=== PATIENT | female | born 1935 | race Caucasian/White ===

== ENCOUNTER 2022-09-13 09:39 | Inpatient (IN) | payer MEDICARE ==
[~2022-09-13] VITALS: Ht 147.3 cm; Wt 61.6 kg
[2022-09-13] MEDS ORDERED: CATAPRES-TTS 11 EAC1 (10:41)
[2022-09-13] MEDS ORDERED: CATAPRES0.1 MG (10:42)
[2022-09-13] MEDS ORDERED: EUTHYROX100 MC1 PO (10:42)
[2022-09-13] MEDS ORDERED: IRBESARTAN300 M3 PO (10:43)
[2022-09-13] MEDS ORDERED: AMLODIPINE BESY10 MG PO (10:43)
[2022-09-13 10:45] LABS: BASOPHILS ABSOLUTE AUTO 0.03 K/mm3 (0.00-0.23); BASOPHILS PERCENT AUTO 0 % (0-2); EOSINOPHILS ABSOLUTE AUTO 0.06 K/mm3 (0.00-0.68); EOSINOPHILS PERCENT AUTO 1 % (0-6); Hematocrit 41.8 % (33.0-51.0); Hemoglobin 14.5 g/dL (11.5-16.0); IMMATURE GRAN ABSOLUTE AUTO 0.03 K/mm3 (0.00-0.10); IMMATURE GRAN PERCENT AUTO 0 % (0-1); LYMPHOCYTES ABSOLUTE AUTO 0.72 K/mm3 (0.84-5.20); LYMPHOCYTES PERCENT AUTO 10 % (21-46); MONOCYTES ABSOLUTE AUTO 0.86 K/mm3 (0.16-1.47); MONOCYTES PERCENT AUTO 12 % (4-13); Mean Corpuscular HGB 32.2 pg (26.0-34.0); Mean Corpuscular HGB Conc 34.7 g/dL (31.5-36.5); Mean Corpuscular Volume 93 fL (80-100); Mean Platelet Volume 9.9 fL (9.1-12.4); NEUTROPHILS ABSOLUTE AUTO 5.49 K/mm3 (1.96-9.15); NEUTROPHILS PERCENT AUTO 76 % (41-73); Platelet Count 268 K/mm3 (150-400); RDW Coefficient Variation 11.6 % (11.7-14.2); RDW Standard Deviation 39.6 fL (35.1-46.3); Red Blood Cell Count 4.51 M/mm3 (3.80-5.20); White Blood Cell Count 7.19 K/mm3 (4.00-11.30)
[2022-09-13] MEDS ORDERED: SPIRONOLACTONE25 MG PO (10:45)
[2022-09-13] MEDS ORDERED: Lovastatin10 MG PO (10:45)
[2022-09-13] MEDS ORDERED: METO100ER PO (10:46)
[2022-09-13] MEDS ORDERED: METFORMIN HCL500 M3 PO (10:46)
[2022-09-13] MEDS ORDERED: PLAVIX75 MG PO (10:46)
[2022-09-13] MEDS ORDERED: PANT20 PO (10:47)
[2022-09-13 10:55] LABS: Albumin, Blood 3.6 g/dL (3.4-5.0); Bilirubin, Total 0.4 mg/dL (0.1-1.0); Calcium, Blood 8.9 mg/dL (8.5-10.1); Globulin, Blood 3.6 g/dL (2.2-4.0); Magnesium, Blood 1.9 mg/dL (1.6-2.4); Thyroid Stimulating Hormone 1.75 uIU/mL (0.360-4.800); Total Protein, Blood 7.2 g/dL (6.4-8.2)
[2022-09-13 10:58] LABS: International Normalized Ratio 1.01; Prothrombin Time Results 10.6 Sec (9.7-11.5)
[2022-09-13 11:11] LABS: Influenza A, PCR NEGATIVE (NEGATIVE); Influenza B, PCR NEGATIVE (NEGATIVE); Resp Syncytial Virus, PCR NEGATIVE (NEGATIVE); SARS-Cov-2 (COVID-19) PCR, MMC NEGATIVE (NEGATIVE)
[2022-09-13 11:44] LABS: Source, Urine Clean Catch
[2022-09-13 11:47] LABS: Appearance, Urine Clear (Clear); Bilirubin, Urine Neg (Neg); Blood, Urine Neg (Neg); Color, Urine Yellow (P-Yellow); Glucose Qualitative, Urine Neg (Neg); Ketones, Urine Neg (Neg); Leukocyte Esterase, Urine 1+ (Neg); Nitrite, Urine Neg (Neg); Protein, Urine 2+ (Neg); Specific Gravity, Urine 1.015 (1.003-1.022); Urobilinogen, Urine NORM (Normal); pH, Urine 6.5 (5.0-8.0)
[2022-09-13 12:05] LABS: Bacteria Not Seen /hpf; Red Blood Cells, Urine Not Seen /hpf (0-2); Squamous Epithelial Cells Rare /hpf (Few); White Blood Cells, Urine 0-2 /hpf (0-5)
[2022-09-13] MEDS ORDERED: Hair, Skin & N1 EACH PO (13:46)
[2022-09-13] MEDS ORDERED: CALCIUM PO (13:46)
[2022-09-13] MEDS ORDERED: TOCO1000 PO (13:47)
--- NOTE | 2022-09-13 15:59 | NUR ---
PATIENT ADMIT TO PCU AT 1330: UPON ADMIT PATIENT ALERT AND ORIENTED X4. ABLE TO STAND AND TRANSFER WITH SBA. ON ROOM AIR, LUNGS SONUDING CLEAR. TELE SHOWING AFIB WITH HR 80-110'S. ON CARDIZEM DRIP AT 10 MG/HR. TITRATED DOWN TO 5MG/HR. ELEVATED BP AND PATIENT FEELING TIGHT BAND AROUND STOMACH, STATES SHE FEELS LIKE SHE IS WEARING A BELT. DR. PERSON CALLED AND UPDATED. DR. FLORES TO BEDSIDE. ORDERS FOR THIS RN TO PLACE. METOPROLOL SUCCINATE 100 MG PO AT 1800 AND TO NOT GIVE 2100 DOSE. TO TURN CARDIZEM GTT OFF AROUND [id number]. HYDRALAZINE 10 MG IV Q4 PRN FOR SBP OVER 160. DC SALINE. CARDIAC DIET. RUQ ABDOMINAL ULTRASOUND TO CHECK GALLBLADDER. TROPONIN CHECK AT 1700, AND HEPARIN PHARMACY CONSULT. ORDERS IN PLACE. BP ELEVATED AND HYDRALAZINE GIVEN WITH GOOD RELIEF, SEE CHARTE VITALS. PATIENT STARTING TO FEEL NAUSEAOUS WITH LEFT SIDED TINGLE AND NOTED TO NOW HAVE SLIGHT LEFT SIDED FACIAL DROOP. DR. FLORES CALLED, ZOFRAN 4MG IV Q6 PRN ORDERED AND GIVEN STAT WELL STAT HEAD CT WITHOUT CONTRAST. ORDERS IN PLACE. CT ON WAY TO SPACE OPERATIONS OFFICER PATIENT. PATIENT AND GRANDSON UPDATED AT BEDSIDE. GRANDSON NOTED THAT PATIENT THIS MORNING HAD SLIGHT LEFT SIDED DROOP AFTER HER FALL WHEN HE WAS ASSESSING HER AND STATED THAT IS SEEMED TO RESOLVE ITSELF WITH TIME IN ED. PATIENT NOW PRESENTING WITH SAME LEFT SIDED DROOP NOTED MAINLY WITH MOUTH. SPEECH SEEMS TO BE MORE SLURRED. PERRLA. BILATERAL DIGITAL SOLUTION ARCHITECT STRENGTH AND EXTREMITY MOVEMENT. CARDIZEM CONTINUES TO INFUSE AT THIS TIME. PUBLIC HOUSING MANAGER UPDATED ON EVENTS. PLAN TO START HEPARIN, WAITING FOR LAB RESULTS.
--- NOTE | 2022-09-13 16:10 | NUR ---
PATIENT TO CT AT THIS TIME
--- NOTE | 2022-09-13 16:43 | NUR ---
PATIENT RETURNS FROM CT. NAUSEA, LEFT ARM TINGLES, LIP NUMBNESS AND LEFT FACIAL DROOP RESOLVED. CT RESULTS PENDING. HEPARIN STARTED. PATIENT MOVED TO PCU 11 CLOSER TO NURSE STATION. BP REMAINS STABLE.
[2022-09-13] MEDS ORDERED: DOCU100 PO (17:10)
[2022-09-13] MEDS ORDERED: MAG GLYCINATE100 MG PO (17:11)
[2022-09-13] MEDS ORDERED: THERA-D2000 UNIT PO (17:13)
--- NOTE | 2022-09-13 18:07 | NUR ---
SHIT SUMMARY: PATIENT NEURO REMAINS UNCHANGED FROM HER BASELINE. NO FURTHER EPISODES, OF LEFT SIDED FACIAL DROOP/LEFT SIDED TINGLE. PATIENT DENIES NAUSEA, AND OVERALL PAIN. 1700 TROP RESULTS WNL. RUQ ULTRASOUND BEING DONE AT THIS TIME. CADIZEM GTT STOPPED PER DR. FLORES AND PO METOPROLOL GIVEN. CONVERSION TO SR AT 1758. HR 60'S. FAMILY UPDATED. VITAL SIGNS REMAIN STABLE. EATING DINNER AT THIS TIME. HEPARIN GTT CONTINUES TO INFUSE.
[2022-09-14 05:29] LABS: BASOPHILS ABSOLUTE AUTO 0.03 K/mm3 (0.00-0.23); BASOPHILS PERCENT AUTO 1 % (0-2); EOSINOPHILS PERCENT AUTO 2 % (0-6); Hematocrit 38.2 % (33.0-51.0); Hemoglobin 12.9 g/dL (11.5-16.0); IMMATURE GRAN ABSOLUTE AUTO 0.01 K/mm3 (0.00-0.10); IMMATURE GRAN PERCENT AUTO 0 % (0-1); LYMPHOCYTES ABSOLUTE AUTO 1.26 K/mm3 (0.84-5.20); LYMPHOCYTES PERCENT AUTO 20 % (21-46); MONOCYTES PERCENT AUTO 14 % (4-13); Mean Corpuscular HGB 31.8 pg (26.0-34.0); Mean Corpuscular HGB Conc 33.8 g/dL (31.5-36.5); Mean Corpuscular Volume 94 fL (80-100); Mean Platelet Volume 9.7 fL (9.1-12.4); NEUTROPHILS ABSOLUTE AUTO 4.13 K/mm3 (1.96-9.15); NEUTROPHILS PERCENT AUTO 64 % (41-73); Platelet Count 236 K/mm3 (150-400); RDW Coefficient Variation 11.7 % (11.7-14.2); RDW Standard Deviation 40.9 fL (35.1-46.3); Red Blood Cell Count 4.06 M/mm3 (3.80-5.20); White Blood Cell Count 6.43 K/mm3 (4.00-11.30)
--- NOTE | 2022-09-14 13:57 | NUR ---
Upon receiving a referral for spiritual care, I visit the patient. The patient talks about her medical condition and thecare plan moving forward. She then shares about the of her and two of her grown children. She tells me that she has 3 remaining children and that she currently lives with her granddaughter and her . She talks about her Spiritism belief system and how meaningful her rosy is especialy during challenging times like the ones she finds herself in this weekend. I provide therapeutic listening, grief supprot and prayer. Patient responed well and showed signs of being comforted and encouraged in her rosy. I will continue to remain available to patient and family.
--- NOTE | 2022-09-14 17:45 | NUR ---
SHIFT SUMMARY PT HAS BEEN RESTING QUIETLY IN ROOM FOR THE DAY. PT HAS DENIED ANY C/O PAIN OR DISCOMFORT. SBP WAS ELEVATED THIS AM (175) AND REMAINED ELEVATED AT VITALS ASSESSMENT AT 1200 (180), PRN MEDICATION LOWERED SBP TO 150'S. PT DENIES ANY SYMPTOMS R/T HIGH BP. PT USED CALL LIGHT APPROPRIATELY AND MADE NEEDS KNOWN. PT AMBULATED TO RESTROOM WITH MINIMAL ASSISTANCE. FAMILY HAS VISITED PT AND BEEN PROACTIVE IN PT'S CARE.
--- NOTE | 2022-09-15 05:52 | NUR ---
SHIFT SUMMARY A/OX4, PLEASANT AND COOPERATIVE WITH CARE. SBA TO BATHROOM. TELE SR IN THE 60S. BP STABLE; DENIES CHEST PAIN/PRESSURE. SPO2 >92% ON RA. HEPARIN GTT CURRENTLY RUNNING AT 13 U/KG/HR. VSS, NO ACUTE CHANGES AT THIS TIME. BED IN LOWEST POSITION WITH CALL LIGHT IN REACH. WILL CONTINUE TO MONITOR AND REPORT TO ONCOMING RN.
[2022-09-15 07:15] LABS: Bun/Creatinine Ratio 15.7 (12.0-20.0); Calcium, Blood 9.1 mg/dL (8.5-10.1); Creatinine, Blood 0.96 mg/dL (0.40-1.00); Potassium, Blood 4.1 mmol/L (3.5-5.5)
[2022-09-15 07:20] LABS: BASOPHILS ABSOLUTE AUTO 0.05 K/mm3 (0.00-0.23); BASOPHILS PERCENT AUTO 1 % (0-2); EOSINOPHILS ABSOLUTE AUTO 0.17 K/mm3 (0.00-0.68); EOSINOPHILS PERCENT AUTO 2 % (0-6); Hematocrit 37.9 % (33.0-51.0); Hemoglobin 12.7 g/dL (11.5-16.0); IMMATURE GRAN ABSOLUTE AUTO 0.02 K/mm3 (0.00-0.10); IMMATURE GRAN PERCENT AUTO 0 % (0-1); LYMPHOCYTES ABSOLUTE AUTO 1.55 K/mm3 (0.84-5.20); LYMPHOCYTES PERCENT AUTO 22 % (21-46); MONOCYTES ABSOLUTE AUTO 0.89 K/mm3 (0.16-1.47); MONOCYTES PERCENT AUTO 13 % (4-13); Mean Corpuscular HGB 31.8 pg (26.0-34.0); Mean Corpuscular HGB Conc 33.5 g/dL (31.5-36.5); Mean Corpuscular Volume 95 fL (80-100); Mean Platelet Volume 10.5 fL (9.1-12.4); NEUTROPHILS ABSOLUTE AUTO 4.26 K/mm3 (1.96-9.15); NEUTROPHILS PERCENT AUTO 62 % (41-73); Platelet Count 257 K/mm3 (150-400); RDW Coefficient Variation 11.9 % (11.7-14.2); RDW Standard Deviation 41.6 fL (35.1-46.3); White Blood Cell Count 6.94 K/mm3 (4.00-11.30)
[2022-09-15 10:20] LABS: Hematocrit 39.7 % (33.0-51.0); Hemoglobin 13.4 g/dL (11.5-16.0); Mean Platelet Volume 9.6 fL (9.1-12.4); Platelet Count 270 K/mm3 (150-400)
[2022-09-15] MEDS ORDERED: ELIQUIS5 M2 PO (11:13)
--- NOTE | 2022-09-15 12:09 | NUR ---
DISCHARGE SUMMARY PT WALKED OUT OF BUILDING ESCORTED BY FAMILY MEMBER. ALL PERSONAL BELONGINGS AND DISCHARGE INSTRUCTIONS WERE IN THE POSSESSION OF FAMILY MEMBER AT THE TIME OF TRANSPORT. ALL QUESTIONS AND CONCERNS WERE ADDRESSED PRIOR TO DISCHARGE. PT STATED AN UNDERSTANDING OF ALL DISCHARGE INSTRUCTIONS.
== END 2022-09-15 11:33 | disposition home or self-care (01) | DRG 309 ==
LOC: ER 09:39 → PCU 11:48
PROVIDERS: Emergency Medicine; Internal Medicine; ADMIT Hospitalist
DX: I48.91 Unspecified atrial fibrillation (principal); E87.1 Hypo-osmolality and hyponatremia; I16.1 Hypertensive emergency; Z20.822 Contact with and (suspected) exposure to COVID-19; E03.9 Hypothyroidism, unspecified; E78.5 Hyperlipidemia, unspecified; K21.9 Gastro-esophageal reflux disease without esophagitis; E11.9 Type 2 diabetes mellitus without complications; M81.0 Age-related osteoporosis without current pathological fracture; I10 Essential (primary) hypertension; Z88.0 Allergy status to penicillin; Z79.02 Long term (current) use of antithrombotics/antiplatelets; Z79.890 Hormone replacement therapy; Z79.899 Other long term (current) drug therapy
CPT/HCPCS: 0241U; 36415; 70450; 70551; 71045; 76705; 80048; 80053; 81001; 83735; 84443; 84484; 85014; 85018; 85025; 85049; 85520; 85610; 85730; 87086; 93005; 93010; 93306; 93880; 96365; 96376; 99285-25; A9270; J0360; J1644; J2405; J7030

== ENCOUNTER → 2022-11-19 | Outpatient (CLI) | payer MEDICARE ==
[~2022-11-19] MED LIST: AMLODIPINE BESY10 MG PO; CALCIUM PO; CATAPRES-TTS 11 EAC1; CATAPRES0.1 MG; DOCU100 PO; ELIQUIS5 M2 PO; EUTHYROX100 MC1 PO; Hair, Skin & N1 EACH PO; IRBESARTAN300 M3 PO; Lovastatin10 MG PO; MAG GLYCINATE100 MG PO; METFORMIN HCL500 M3 PO; METO100ER PO; PANT20 PO; PLAVIX75 MG PO; SPIRONOLACTONE25 MG PO; THERA-D2000 UNIT PO; TOCO1000 PO
[2022-11-19 15:44] LABS: Source, Urine Clean Catch
[2022-11-19 16:00] LABS: Bacteria Not Seen /hpf; Renal Epithelial Few /hpf (0-Rare); Squamous Epithelial Cells Many /hpf (Few); Transitional Epithelial Cells Mod /hpf (0-Rare)
[2022-11-19 16:01] LABS: Oval Fat Bodies Mod /lpf
== END | disposition home or self-care (01) ==
LOC: LAB SHORT 15:42
PROVIDERS: Emergency Medicine
DX: N39.0 Urinary tract infection, site not specified (principal)
CPT/HCPCS: 81015; 87086

== ENCOUNTER 2023-04-02 17:24 | Inpatient (IN) | payer MEDICARE ==
[~2023-04-02] VITALS: Ht 147.3 cm; Wt 65.9 kg
[2023-04-02] MEDS ORDERED: CATAPRES-TTS 11 EAC1 TOP (19:34)
[2023-04-02] MEDS ORDERED: PANTOPRAZOLE SO2010 PO (19:34)
[2023-04-02 21:43] LABS: Bun/Creatinine Ratio 16.4 (12.0-20.0); Calcium, Blood 7.7 mg/dL (8.5-10.1); Creatinine, Blood 0.79 mg/dL (0.40-1.00); Magnesium, Blood 1.7 mg/dL (1.6-2.4); Potassium, Blood 3.8 mmol/L (3.5-5.5)
[2023-04-02 22:22] LABS: Sodium, Urine, Random 26 mmol/L (20-110)
[2023-04-02 22:44] LABS: Osmolality, Urine 475 mos/kg (15-1400)
[2023-04-02 23:48] VITALS: BP 150/73
[2023-04-02 23:52] LABS: International Normalized Ratio 1.13; Prothrombin Time Results 11.8 Sec (9.7-11.5)
[2023-04-03] VITALS (7 sets, daily range): BP systolic 94–151; BP diastolic 66–98
[2023-04-03] MEDS ORDERED: LEVSOD100 PO (00:27)
[2023-04-03] MEDS ORDERED: METO50ER PO (00:33)
[2023-04-03] MEDS ORDERED: METO100ER PO (00:33)
[2023-04-03] MEDS ORDERED: CATAPRES0.1 MG PO (00:43)
[2023-04-03] MEDS ORDERED: Lovastatin20 MG PO (00:45)
[2023-04-03] MEDS ORDERED: METF500 PO (00:46)
[2023-04-03] MEDS ORDERED: IRBE150 PO (00:50)
[2023-04-03] MEDS ORDERED: Vitamin D1000 UNI1 PO (00:53)
--- NOTE | 2023-04-03 01:32 | NUR ---
ADMISSION NOTE ASSUMED CARE OF PATIENT WHEN ARRIVED TO FLOOR AT 23:15. PATIENT IS A/Ox4, PLEASANT, COOPERATIVE, ABLE TO VERBALIZE NEEDS. GRAND DAUGHTER AT BEDSIDE. ORIENTED PATIENT/FAMILY MEMBER TO UNIT, ROOM, AND CALL LIGHT USE. DENIES PAIN AT TIME OF ASSESSMENT, STATES JUST ABD DISCOMFORT, IS TOLERABLE, DECLINED PAIN MEDICATION. 24G TO LEFT HAND, PATENT, INFUSING NS@75mL/HR. REQUIRES MINIMAL ASSIST, SBA, TO BSC. APPEARES IN NO ACUTE DISTRESS. BED LOW, CALL LIGHT WITHIN REACH.
[2023-04-03 03:28] LABS: BASOPHILS ABSOLUTE AUTO 0.03 K/mm3 (0.00-0.23); BASOPHILS PERCENT AUTO 0 % (0-2); EOSINOPHILS ABSOLUTE AUTO 0.18 K/mm3 (0.00-0.68); EOSINOPHILS PERCENT AUTO 2 % (0-6); Hematocrit 30.8 % (33.0-51.0); Hemoglobin 10.9 g/dL (11.5-16.0); IMMATURE GRAN ABSOLUTE AUTO 0.08 K/mm3 (0.00-0.10); IMMATURE GRAN PERCENT AUTO 1 % (0-1); LYMPHOCYTES ABSOLUTE AUTO 0.61 K/mm3 (0.84-5.20); LYMPHOCYTES PERCENT AUTO 6 % (21-46); MONOCYTES ABSOLUTE AUTO 1.25 K/mm3 (0.16-1.47); MONOCYTES PERCENT AUTO 13 % (4-13); Mean Corpuscular HGB 29.9 pg (26.0-34.0); Mean Corpuscular HGB Conc 35.4 g/dL (31.5-36.5); Mean Corpuscular Volume 85 fL (80-100); NEUTROPHILS ABSOLUTE AUTO 7.37 K/mm3 (1.96-9.15); NEUTROPHILS PERCENT AUTO 78 % (41-73); Platelet Count 501 K/mm3 (150-400); RDW Coefficient Variation 11.5 % (11.7-14.2); RDW Standard Deviation 35.8 fL (35.1-46.3); Red Blood Cell Count 3.64 M/mm3 (3.80-5.20); White Blood Cell Count 9.52 K/mm3 (4.00-11.30)
[2023-04-03 03:46] LABS: Albumin, Blood 2.7 g/dL (3.4-5.0); Albumin/Globulin Ratio 0.8 (0.8-1.8); Bilirubin, Total 0.3 mg/dL (0.1-1.0); Bun/Creatinine Ratio 14.8 (12.0-20.0); Calcium, Blood 8.7 mg/dL (8.5-10.1); Creatinine, Blood 0.95 mg/dL (0.40-1.00); Globulin, Blood 3.4 g/dL (2.2-4.0); Potassium, Blood 4.2 mmol/L (3.5-5.5); Total Protein, Blood 6.1 g/dL (6.4-8.2)
--- NOTE | 2023-04-03 04:36 | NUR ---
SHIFT SUMMARY PATIENT A/Ox4, DENIES PAIN, CONTINUES TO ENDORSE MILD ABDOMINAL DISCOMFORT. NO ACUTE CHANGES NOTED OVERNIGHT. SPO2 MAINTAINED >90% ON RA. NO C/O SOB NOR DIFFICULTY BREATHING. SEE ADMISSION NOTE FOR FURTHER DETAIL. BED IN LOW POSITION, CALL LIGHT WITHIN REACH.
--- NOTE | 2023-04-03 07:39 | NUR ---
TELE CALLED. PT FLIPPED FROM NSR TO AFIB 120-150. PT DENIES SYMPTOMS. HAS HX OF AFIB AND TAKES METOPROLOL. CALLED DR FIELDS. ORDERS TO GIVE AM MEDS NOW. NO OTHER ORDERS
[2023-04-03 15:38] LABS: Bun/Creatinine Ratio 13.8 (12.0-20.0); Calcium, Blood 8.5 mg/dL (8.5-10.1); Creatinine, Blood 0.8 mg/dL (0.40-1.00); Potassium, Blood 4.1 mmol/L (3.5-5.5)
[2023-04-03 15:54] LABS: Carcinoembryonic Antigen 0.7 ng/mL (0.0-3.0)
[2023-04-03 16:03] LABS: Cancer Antigen 125 64.1 U/mL (1.5-35.0)
[2023-04-03 16:15] LABS: Cancer Antigen 19-9 1279.9 U/mL (2.0-37.0)
--- NOTE | 2023-04-03 18:33 | NUR ---
TELE CALLED , PT HAD 7 SEC RUN SVT. HAS RETURNED TO AFIB 1-TEENS. OCC SPIKES TO 150'S. PT ASYMPTOMATIC. SITTING TALKING TO FAMILY. DR TO ADJUST CATAPRRES TO 1PM AND [address] TO CHANGE TOMORROW. NO ORDERS FOR THIS TIME.
--- NOTE | 2023-04-03 18:50 | NUR ---
PT IS REASONABLY GOOD SPIRITS TODAY. PAIN/PRESSURE MEDICATED THIS AFT. DID WELL. LOWER DOSE OF 20 MCG GIVEN WHEN PT STATES IS GOOD ENOUGH. STOPPED. FAMILY IN TO VISIT TODAY. PT EAGERR TO GET PARACENTISIS TO RELEIVE PRESSURE. CANCER DR CALLED IN FOR CONSULT. GI CALLED FOR COLONOSCOPY. PAGED, BUT NO CALL BACK YET. DID HAVE SWITCH TO AFIB THIS AM EARLY. THEN, HAD 7 SEC RUN SVT AT 1830. DR NOTIFIED. NONEW ORDERS. BED IN LOW POSITION, CALL LITE IN REACH, CALLS APPROP
--- NOTE | 2023-04-03 21:21 | NUR ---
RECIEVED A CALL FROM TELE- PPT HR ELEVATED TO THE 150'S. UPON ENTERING THE PT ROOM IT WAS NOTED THE PT WAS BREATHING A LITTLE FAST. PT STATED SHE WAS "PUTTING HER TEETH TO BED" SHE HAD JUST BEEN UP TO THE BSC WITH HER DAUGHTER. VS TAKEN AT THIS TIME. VSS. PER TELE HR NOW 110'S. PT HAS NO S&S OF DISTRESS STATED NO CHEST PAIN, DIZZINESS, OR SYMPTOMS.
[2023-04-03 21:35] LABS: Bun/Creatinine Ratio 10.8 (12.0-20.0); Calcium, Blood 8.3 mg/dL (8.5-10.1); Creatinine, Blood 0.83 mg/dL (0.40-1.00); Potassium, Blood 4.1 mmol/L (3.5-5.5)
--- NOTE | 2023-04-03 22:51 | NUR ---
CALLED NIGHT HSPITALIST- PT HAS HAD SEVERAL EPISODES OF TACHY HR UP TO THE 150'S, SHE IS ASYMPTOMATIC WITH THEM, IT SEEMS TO BE R/T ACTIVITY INTOLLERANCE. PO METORPOLOL AND 0.1MG CLONIDINE WAS GIVEN SBP IN THE 140'S. PT HAD ANOTHER EPISODE UP TO THE 150'S AND TOOOK LONGER TO RECOVER. BP 94/73 CALLED [facility] AND RECIEVED ORDER FOR FLUID BOLUS. IF HR IS STILL ABOVE 115 AND SBP ABOVE 100 THEN IV LOPRESSOR MAY BE ORDERED PRN.
--- NOTE | 2023-04-04 00:05 | NUR ---
POST FLUID BOLUS VS- POST 500ML BOLUS HR ON TELE 105 120'S/80'S. PT IN BED, ASYMPTOMATIC, DENIES ANY CP OR SOB. NO CURRENT S&S OF DISTRESS. IV SL AT THIS TIME. REQUESTED TELE TO NOTIFY THIS RN IF HR ELEVATES AND SUSTAINS AGAIN.
[2023-04-04 05:00] VITALS: BP 119/63
--- NOTE | 2023-04-04 05:15 | NUR ---
SHIFT SUMMARY- PT HAS HAD SEVERAL EPISODES OF TACHYCARDIA (ASYMPTOMATIC) USUALLY FOLLOWING A TRIP TO THE [facility] [place] FLUID BOLUS WAS ORDERD AND PT RECIEVED IT. BP CAME BACK UP AND HR WENT DOWN TO 105. AT AROUND 0500 RECIEVED A CALL FROM TELE, PT IS AGAIN TACHY 120'S-160'S. SPOKE TO ADJUDICATION SPECIALIST ABOUT NEED TO CALL THE MD. PT IN BED SLEEPING, NO S&S OF DISTRESSS NOTED, CALL LIGHT IN REACH, FAMILY AT THE BEDSIDE.
[2023-04-04 05:23] LABS: BASOPHILS ABSOLUTE AUTO 0.04 K/mm3 (0.00-0.23); BASOPHILS PERCENT AUTO 1 % (0-2); EOSINOPHILS ABSOLUTE AUTO 0.07 K/mm3 (0.00-0.68); EOSINOPHILS PERCENT AUTO 1 % (0-6); Hemoglobin 10.9 g/dL (11.5-16.0); IMMATURE GRAN ABSOLUTE AUTO 0.05 K/mm3 (0.00-0.10); IMMATURE GRAN PERCENT AUTO 1 % (0-1); LYMPHOCYTES ABSOLUTE AUTO 0.54 K/mm3 (0.84-5.20); LYMPHOCYTES PERCENT AUTO 7 % (21-46); MONOCYTES ABSOLUTE AUTO 1.06 K/mm3 (0.16-1.47); MONOCYTES PERCENT AUTO 13 % (4-13); Mean Corpuscular HGB 29.1 pg (26.0-34.0); Mean Corpuscular HGB Conc 34.1 g/dL (31.5-36.5); Mean Corpuscular Volume 86 fL (80-100); Mean Platelet Volume 9.4 fL (9.1-12.4); NEUTROPHILS ABSOLUTE AUTO 6.48 K/mm3 (1.96-9.15); NEUTROPHILS PERCENT AUTO 79 % (41-73); Platelet Count 512 K/mm3 (150-400); RDW Coefficient Variation 11.4 % (11.7-14.2); RDW Standard Deviation 35.4 fL (35.1-46.3); Red Blood Cell Count 3.74 M/mm3 (3.80-5.20); White Blood Cell Count 8.24 K/mm3 (4.00-11.30)
[2023-04-04 05:57] LABS: Bun/Creatinine Ratio 10.2 (12.0-20.0); Calcium, Blood 8.3 mg/dL (8.5-10.1); Creatinine, Blood 0.79 mg/dL (0.40-1.00); Percent Saturation 11.6 % (15.0-50.0); Potassium, Blood 4.1 mmol/L (3.5-5.5)
[2023-04-04 08:26] VITALS: BP 112/57
[2023-04-04 08:50] LABS: Bun/Creatinine Ratio 10.8 (12.0-20.0); Calcium, Blood 8.5 mg/dL (8.5-10.1); Creatinine, Blood 0.74 mg/dL (0.40-1.00)
[2023-04-04 12:21] VITALS: BP 109/69
[2023-04-04 12:49] LABS: Automated BF RBC Count 0.003 M/mm3 (0-0); Automated BF WBC Count 2.108 K/mm3 (0-999)
[2023-04-04 12:51] LABS: Body Fluid WBC Count 2108 /mm3 (0-999); RBC Count, Body Fluid 3000 /mm3 (0-0)
[2023-04-04 13:04] LABS: Albumin, Body Fluid 2.4 g/dL; Lactate Dehydrogenase, Body Fl 203 U/L; Protein, Body Fluid 4.4 g/dL
[2023-04-04 13:26] LABS: Appearance, Body Fluid Hazy (Clear); Color, Body Fluid Yellow (None-Yellow)
[2023-04-04 13:28] LABS: Total Cell Count, Body Fluid 100
[2023-04-04 16:36] VITALS: BP 111/78
[2023-04-04 17:05] LABS: Bun/Creatinine Ratio 9.7 (12.0-20.0); Calcium, Blood 8.4 mg/dL (8.5-10.1); Creatinine, Blood 0.83 mg/dL (0.40-1.00); Potassium, Blood 4.2 mmol/L (3.5-5.5)
[2023-04-04 19:15] VITALS: BP 105/65
--- NOTE | 2023-04-04 19:48 | NUR ---
PT PLEASANT COOP A/O. FAMILY IN TO SUPPORT PT TODAY. GRAND-DAUGHTER ESPECIALLY HELPFUL AND SUPPORTIVE. HAD PARACENTISIS TODAY. SHE SCHEDULED FOR COLONOSCOPY DR RAINES TOMORROW 3-4 PM. STARTED GOLYTLE 4PM. USING BSC AT THIS TIME. H/R IRREG AFIB WITH PAUSES TODAY. SPOKE TO DR CARSON RE HEART SEVERAL TIMES TODAY. ORDERS MADE. NO OTHER CONCERNS NOTED AT THIS TIME. BED IN LOW POSITION, CALL LITE IN REACH, CALLS APPORP
[2023-04-05] VITALS (20 sets, daily range): BP systolic 89–144; BP diastolic 48–91
[2023-04-05 05:41] LABS: BASOPHILS ABSOLUTE AUTO 0.03 K/mm3 (0.00-0.23); BASOPHILS PERCENT AUTO 0 % (0-2); EOSINOPHILS ABSOLUTE AUTO 0.08 K/mm3 (0.00-0.68); EOSINOPHILS PERCENT AUTO 1 % (0-6); Hematocrit 32.2 % (33.0-51.0); Hemoglobin 10.8 g/dL (11.5-16.0); IMMATURE GRAN ABSOLUTE AUTO 0.04 K/mm3 (0.00-0.10); IMMATURE GRAN PERCENT AUTO 1 % (0-1); LYMPHOCYTES ABSOLUTE AUTO 0.49 K/mm3 (0.84-5.20); LYMPHOCYTES PERCENT AUTO 6 % (21-46); MONOCYTES ABSOLUTE AUTO 1.09 K/mm3 (0.16-1.47); MONOCYTES PERCENT AUTO 13 % (4-13); Mean Corpuscular HGB Conc 33.5 g/dL (31.5-36.5); Mean Corpuscular Volume 87 fL (80-100); Mean Platelet Volume 9.4 fL (9.1-12.4); NEUTROPHILS ABSOLUTE AUTO 6.38 K/mm3 (1.96-9.15); NEUTROPHILS PERCENT AUTO 79 % (41-73); Platelet Count 515 K/mm3 (150-400); RDW Coefficient Variation 11.6 % (11.7-14.2); RDW Standard Deviation 37.3 fL (35.1-46.3); Red Blood Cell Count 3.72 M/mm3 (3.80-5.20); White Blood Cell Count 8.11 K/mm3 (4.00-11.30)
[2023-04-05 06:12] LABS: Albumin, Blood 2.3 g/dL (3.4-5.0); Albumin/Globulin Ratio 0.8 (0.8-1.8); Bilirubin, Total 0.4 mg/dL (0.1-1.0); Bun/Creatinine Ratio 9.5 (12.0-20.0); Calcium, Blood 8.2 mg/dL (8.5-10.1); Creatinine, Blood 0.74 mg/dL (0.40-1.00); Potassium, Blood 4.3 mmol/L (3.5-5.5); Total Protein, Blood 5.3 g/dL (6.4-8.2)
--- NOTE | 2023-04-05 17:15 | NUR ---
PT TRANSFERRED FROM ROOM 343 TO PCU 2. REPORT RECIEVED FROM JOSE WONG. PT IN AFIB WITH A RATE BETWEEN LOW 100S AND 150S. CARDIZEM GTT STARTED AT 5MG/HR. CALL TO DAY SURGERY TO DISCUSS COMMUNICATION FROM GI DOCS. NURSE STATED THAT HE THOUGHT ORDERS WERE GIVEN TO HOSPITALIST. CALL TO RESIDENT WHO HAD NOT HEARD ANYTHING BUT WAS GOING TO CONFIRM WITH DR CARSON. INSTRUCTED TO WAIT TO HEAR BACK BEFORE CALLING GI DIRECTLY. FAMILY AT BEDSIDE AND UPDATED AND ALL QUESTIONS ANSWERED TO SATISFACTION AT THIS TIME.
--- NOTE | 2023-04-05 17:24 | NUR ---
THE PATIENT WAS TRANSFERRED TO PCU #2 FOR UNCONTROLLED HEART RATE. THE PATIENT'S HR WAS IN [id number] AFTER THREE DOSES OF LOPRESSOR (5 MG) AND HER DR. ORDERED HER TRANSFERRED TO PCU. THE PATIENT IS ALERT AND ORIENATED X 4, STAND BY ASSIST, AND FOLLOWS COMMANDS. THE PATIENT'S FAMILY WAS IN HER ROOM THE PATIENT WAS TRANSFERRED.
--- NOTE | 2023-04-05 17:37 | NUR ---
DR FIELDS CALLED BACK AND STATED PT COULD BE CLEAR LIQUID DIET. DR SOLITARIO WILL REEVALUATE IF PT CAN HAVE COLONOSCOPY AND EGD TOMORROW.
--- NOTE | 2023-04-05 18:22 | NUR ---
SHIFT SUMMARY: PT'S CARDIZEM GTT UP TO 15MG/HR OUT THIS TIME. FAMILY AT BEDSIDE. PLAN IS FOR POSSIBLE COLONOSCOPY AND EGD TOMORROW IF HR TOLERATES. PT ON RA STATES ASYMPTOMATIC. DENIES NEEDS OR CONCERNS AT THIS TIME.
--- NOTE | 2023-04-05 18:32 | NUR ---
CALL TO DR CARSON DUE TO PT'S HR REMAINING IN 140S DESPITE CARDIZEM TITRATION TO 15MG/HR. DR INSTRUCTED TO GIVE FLUID BOLUS AND THEN CONTINUOUS FLUIDS. SLEEPING ROOM CLEANER AWARE OF CURRENT PLANS
--- NOTE | 2023-04-05 20:10 | NUR ---
ASSUMED PT CARE FROM BELKYS WONG ON . A&OX4. DENIES CHEST PAIN/PRESSURE AT THIS TIME. HR 140'S ON DILTIAZEM GTT AT 15, HR DECREASING INTO 80'S AND THEN BACK UP INTO 120'S, ON SUSTAINING. DECREASED DILT GTT TO 5. PT DENIES ANY DIZZIENESS WHEN HR DECREASES. UP TO BSC WITH SBA TO VOID. BP STABEL, SEE RECORDED VITAL SIGNS. AFEBRILE. DENIES NAUSEA. STATES ABDOMEN "FEELS FULL", THIS FEELING STARTED SOON AFTER HAVING FLUID DRAING FROM ABDOMEN LAST TIME. DENIES PAIN IN ABDOMEN. WILL MONIOTR. CALL LIGHT IN REACH. FAMILY ATTENTIVE AT BEDSIDE.
[2023-04-06] VITALS (7 sets, daily range): BP systolic 124–169; BP diastolic 55–94
[2023-04-06 02:28] LABS: Bun/Creatinine Ratio 8.3 (12.0-20.0); Calcium, Blood 6.9 mg/dL (8.5-10.1); Creatinine, Blood 0.61 mg/dL (0.40-1.00); Potassium, Blood 3.7 mmol/L (3.5-5.5)
--- NOTE | 2023-04-06 06:48 | NUR ---
SHIFT SUMMARY: PT HR DECREASED INTO 60'S LAST EVENING, DILT GTT STOPPED AT APPOXIMATELY 2230. HR HAS MAINTAINED IN 80-110'S ALL SHIFT WITH OCCAIONAL INCREASE INTO 130'S, RESOLVES BACK TO LOW 100'S IN LESS THEN 1 MINUTE. PT REMAIN ASYMPTOMATIC. DENIES ANY CHEST PAIN/PRESSURE. CALL LIGHT IN REACH. BED IN LOW POSITION.
--- NOTE | 2023-04-06 10:24 | NUR ---
[place] of Care: Care assumed at 0700hr. Patient sitting in chair next to bed at shift change, then transferred to bed via stand by assist without difficulty. Alert and oriented x4. Denies pain, discomfort, SOB or dyspnea. VSS, spO2- 96% on RA. Heart rhythm shows A-fib in the 80's at shift change, then HR increased to 140's-150's for approx 2-3 minutes x2 this morning. Heart rhythm then converted to sinus in the 70's at approx 0820hr, remains sinus rhythm at this time. PO Cardizem added to scheduled meds this morning. Current scheduled medications confirmed with Dr. Jarquin at bedside. Peripheral IV x1 patent and intact, infusing NS at 75ml/hr without difficulty. Spoke with Jackie WONG in Day surgery unit r/t plan for colonoscopy and endoscope today with Dr. Loredo. This RN reported x1 loose brown/yellow stool this morning with some forme/chunks of stool. Jackie reported she will speak with Dr. Loredo to discuss plan. Patient given chicken broth and jello this morning, will keep strict NPO until further word from Jackie WONG or Dr. Loredo. Call light in reach, makes needs known. Will continue to monitor.
--- NOTE | 2023-04-06 10:54 | NUR ---
Call to Dr. Loredo/Bowel Prep: Spoke with Dr. Loredo at this time. Reported consistency of patient's BM this morning. Received new order for Miralax 17gm x2, then keep patient NPO for possible procedure this afternoon.
--- NOTE | 2023-04-06 14:24 | NUR ---
IV SITE LAC PATENT
--- NOTE | 2023-04-06 15:47 | NUR ---
04/06/23 [address] ORNELAS; SEE ANESTHESIA RECORDS.
--- NOTE | 2023-04-06 18:52 | NUR ---
Shift Summary: Patient returned from Day Surgery unit at approx 1700hr. Patient drowsy, but remains oriented x4. Denies pain, discomfort, SOB, or dyspnea. VS remains stable. Transferring via stand-by assist without difficulty. Regular diet ordered per Dr. Loredo, but patient does not have apatite at this time. Family at bedside. Call light in reach. Makes needs known. Will continue to monitor until report to NOC shift RN.
--- NOTE | 2023-04-06 20:00 | NUR ---
ASSUMED CARE OF PT AT 1915. REPORT RECEIVED AT BEDSIDE. PT PRESENTS IN ROOM WITH FAMILY AT BEDSIDE. PT ALERT AND ORIENTED. PLEASANT AND COOPERATIVE WITH CARE AND ASSESSMENT. DENIES ANY COMPLAINTS AT THIS TIME. FAMILY VERY ATTENTIVE TO PT'S NEEDS. DR PEARSON COMES TO ROOM. DISCUSSED FINDINGS, AND PLAN FOR POSSIBLE BIOPSY VIA LAPROSCOPY ON WEDNESDAY AM. WILL REVIEW CHART AND PLAN OF CARE FOR THIS PT.
[2023-04-07] VITALS: BP 134/57
--- NOTE | 2023-04-07 02:35 | NUR ---
PT HAS BEEN UP TO BEDSIDE COMMODE TO VOID. NO COMPLAINTS WITH TRANSFER. PT VOIDS Q.S. JUST NEEDS ASSIST WITH MONITORING EQUIPMENT.
[2023-04-07 04:00] VITALS: BP 136/59
[2023-04-07 06:02] LABS: Hematocrit 28.1 % (33.0-51.0); Hemoglobin 9.5 g/dL (11.5-16.0)
--- NOTE | 2023-04-07 06:05 | NUR ---
PT CONTINUES WITHOUT COMPLAINT OF ABDOMINAL PAIN. REMAINS IN SINUS RHYTHM. VSS. PT ABLE TO MOVE HERSELF ABOUT IN BED. HAVE ASSISTED NEEDED. WILL CONITNUE TO MONITOR PT, AND WILL REPORT OFF TO ONCOMING RN.
[2023-04-07 06:22] LABS: Bun/Creatinine Ratio 8.8 (12.0-20.0); Calcium, Blood 7.9 mg/dL (8.5-10.1); Creatinine, Blood 0.68 mg/dL (0.40-1.00); Magnesium, Blood 1.7 mg/dL (1.6-2.4)
--- NOTE | 2023-04-07 06:52 | NUR ---
PT'S GRANDDAUGHTER CALLS THIS AM FOR UPDATE. THIS GIVEN.
[2023-04-07 08:20] VITALS: BP 146/58
[2023-04-07 11:44] VITALS: BP 140/60
[2023-04-07 15:28] VITALS: BP 137/58
[2023-04-07 15:35] LABS: Bun/Creatinine Ratio 9.7 (12.0-20.0); Creatinine, Blood 0.83 mg/dL (0.40-1.00); Potassium, Blood 3.8 mmol/L (3.5-5.5)
--- NOTE | 2023-04-07 19:28 | NUR ---
SHIFT SUMMARY PATIENT TRANSFERRED TO MEDICAL FLOOR RM 356 FROM PCU2 AT 1250. NO ACUTE EVENTS DURING SHIFT. BED IN LOW POSITION CALL LIGHT IN REACH. PATIENT AOX4 AND CALLS APPROPRIATELY
[2023-04-07 19:59] VITALS: BP 142/60
[2023-04-08] VITALS (11 sets, daily range): BP systolic 113–140; BP diastolic 51–95
--- NOTE | 2023-04-08 04:07 | NUR ---
SHIFT SUMMARY PT. ALERT AND ORIENTED TO PERSON, PLACE AND SITUATION. GRANDAUGHTER IN TO VISIT. PT. UNABLE TO HAVE A BOWEL MOVEMENT THIS SHIFT. NPO AT MIDNIGHT. PT. SLEPT WELL T/O SHIFT WITH EVEN AND UNLABORED RESPIRATIONS. IV INFUSING PER EMAR. PT. DENIED PAIN, CHEST PAIN, SOB. PT. IS ABLE TO MAKE NEEDS KNOWN. BED IS IN THE LOWEST POSITION AND CALL LIGHT IS WIHIN REACH. NO SIGNIFICANT CHANGES NOTED THIS SHIFT.
--- NOTE | 2023-04-08 06:40 | NUR ---
PATIENT OUT TO EGD AT 0640.
--- NOTE | 2023-04-08 09:47 | NUR ---
PATIENT OFF UNIT PRIOR TO THIS LIVESTOCK FARMWORKER SHIFT, PER NURSE MONET, PATIENT LEFT UNIT FOR SURGERY AT 0640.
--- NOTE | 2023-04-08 11:34 | NUR ---
PATIENT ARRIVED ON UNIT AT 1040 WITH CITY DRIVER, RN TO RN REPORT BEDSIDE. PATIENT ON 3LPM POST OP. ALL INCISION SITES CLEAN AND DRY, NO REDNESS NOTED. PATIENT IS IN AFIB. DR THOMPSON NOTIIFIED IMMEDIATELY, ACTUAL RADIAL PULSE MEASURING 60-90S DESPITE MONITOR MEASURING AFIB FROM 25-102. ORD[address] DR CARSON TO GIVE ALL AM MEDS. MEDS GIVEN.
[2023-04-08 14:11] LABS: Creatinine, Blood 0.64 mg/dL (0.40-1.00); Magnesium, Blood 1.7 mg/dL (1.6-2.4); Potassium, Blood 4.2 mmol/L (3.5-5.5)
--- NOTE | 2023-04-08 14:12 | NUR ---
"Spiritual Care Visit | Pt. request Pt. is awake in bed and welcomes my visit. Pt. is pleasant but unsettled about her recent cancer diagnosis. Facilitated a life review and listened with empathy and a calmong presence. Pt. displayed evidence of great trust and commitment to the spiritual care that was given. Prayed with Pt. Pt. verbalized gratitude for the spiritual care visit."
[2023-04-08 14:33] LABS: Hematocrit 31.7 % (33.0-51.0); Hemoglobin 10.7 g/dL (11.5-16.0)
--- NOTE | 2023-04-08 18:30 | NUR ---
SHIFT SUMMARY PATIENT HAD BIOPSY DONE TODAY VIA LAPAROTOMY, ALSO MEDIPORT PLACED TO RIGHT UPPER CHEST. PATIENT WITH AFIB SINCE SURGERY. REQUIRING 3LPM O2 POST OP, NOW WEANED DOWN TO 1LPM AND SAT 95%. NO BMX AT LEAST 4 DAYS. PATIENT REQUEST [facility], DR DELEON AGREES AND ORDERS FOR THIS EVENING. PATIENT UP WITH PT ABLE TO WALK 20 WITH WALKER AND GAIT BELT. BED IN LOW POSITION, CALL LIGHT IN REACH. PATIENT CALLS APPROPRIATELY.
[2023-04-09 04:42] VITALS: BP 115/62
[2023-04-09 04:43] VITALS: BP 115/62
--- NOTE | 2023-04-09 05:15 | NUR ---
SHIFT SUMMARY PT. HAS USED A WALKER DURING TIMES OF AMBULATION TO THE RESTROOM FOLLOWING HER PRECEDURE ON WEDNESDAY, SEE EMAR. PT. DENIES CHEST PAIN/PRESSURE. GRANDAUGHTER IN AT BEDTIME TO VISIT WITH PT. PATIENT IS ALERT AND ORIENTED TO PERSON, PLACE, SITUATION, AND IS ABLE TO MAKE HER NEEDS KNOWN. BED IS IN THE LOWEST POSITION AND CALL LIGHT IS WITHIN REACH. NO ACUTE CHANGES THIS SHIFT.
[2023-04-09 07:24] VITALS: BP 131/89
[2023-04-09 12:09] LABS: Stool Occult Blood Guaiac 1 Neg (Neg)
[2023-04-09] MEDS ORDERED: CALCIUM CITRAT250 MG PO (14:22)
[2023-04-09] MEDS ORDERED: DILTIAZEM 24HR240 M3 PO (14:23)
[2023-04-09] MEDS ORDERED: MIRALAX17 GM PO (14:24)
[2023-04-09] MEDS ORDERED: SODCHL1 PO (14:24)
[2023-04-09] MEDS ORDERED: MAGNESIUM OXID500 MG PO (14:24)
[2023-04-09 14:47] VITALS: BP 133/60
--- NOTE | 2023-04-09 19:56 | NUR ---
SHIFT SUMMARY PATIENT DOING WELL IN AM, PLANNED DISCHARGE IN AFTERNOON. UPON DISCHARGE TIME AT 1630, PATIENT HAD INCREASING ABDOMINAL DISTENSION AGAIN AND HER FEET AND HANDS SWELLED, SHE BECAME NAUSOUS AND VOMITED. DR FIELDS NOTIFIED AND CAME TO BEDSIDE, OFFERED OPTIONS TO PATIENT AND FAMILY. PATIENT OPTED TO STAY INPATIENT AND BE EVALUATED FOR PARACENTESIS/PLEURX OPTIONS. BED IN LOW POSITION, CALL LIGHT IN REACH. PATIENT CALLS APPROPRIATELY. FAMILY AT BEDSIDE INTERMITTENT THROUHOUT DAY.
[2023-04-09 20:43] VITALS: BP 139/54
[2023-04-10 03:42] VITALS: BP 129/67
--- NOTE | 2023-04-10 04:45 | NUR ---
SHIFT SUMMARY PT IS A&O4, UP SB TO THE COMMODE, 2L AT NIGHT, PORT ACCESSED PER ORDER FLUIDS INFUSING PT TOLERATED WELL, HAD 2 SMALL BM'S THIS SHIFT, ZOFRAN GIVEN PER MAR X1 FOR NAUSEA AND VOMITING EARLY IN THE SHIFT, NO ACUTE OVERNIGHT EVENTS, CONTINUE POC
[2023-04-10 08:17] VITALS: BP 120/71
[2023-04-10 10:02] LABS: BASOPHILS ABSOLUTE AUTO 0.01 K/mm3 (0.00-0.23); BASOPHILS PERCENT AUTO 0 % (0-2); EOSINOPHILS PERCENT AUTO 0 % (0-6); Hematocrit 31.7 % (33.0-51.0); Hemoglobin 10.6 g/dL (11.5-16.0); IMMATURE GRAN ABSOLUTE AUTO 0.05 K/mm3 (0.00-0.10); IMMATURE GRAN PERCENT AUTO 0 % (0-1); LYMPHOCYTES PERCENT AUTO 4 % (21-46); MONOCYTES ABSOLUTE AUTO 0.91 K/mm3 (0.16-1.47); MONOCYTES PERCENT AUTO 7 % (4-13); Mean Corpuscular HGB 28.9 pg (26.0-34.0); Mean Corpuscular HGB Conc 33.4 g/dL (31.5-36.5); Mean Corpuscular Volume 86 fL (80-100); Mean Platelet Volume 8.8 fL (9.1-12.4); NEUTROPHILS ABSOLUTE AUTO 10.99 K/mm3 (1.96-9.15); NEUTROPHILS PERCENT AUTO 88 % (41-73); Platelet Count 452 K/mm3 (150-400); RDW Coefficient Variation 12.2 % (11.7-14.2); RDW Standard Deviation 38.8 fL (35.1-46.3); Red Blood Cell Count 3.67 M/mm3 (3.80-5.20); White Blood Cell Count 12.46 K/mm3 (4.00-11.30)
[2023-04-10 10:17] LABS: Albumin, Blood 2.1 g/dL (3.4-5.0); Anion Gap 8 mmol/L (6-16); Blood Urea Nitrogen 15 mg/dL (8-24); Bun/Creatinine Ratio 22.3 (12.0-20.0); CO2, Blood 25 mmol/L (21-32); Calcium, Blood 8.2 mg/dL (8.5-10.1); Chloride, Blood 100 mmol/L (98-108); Creatinine, Blood 0.67 mg/dL (0.40-1.00); Glomerular Filtration Rate 86 (60-); Glucose, Blood 149 mg/dL (70-99); Magnesium, Blood 1.7 mg/dL (1.6-2.4); Phosphorus, Blood 3.8 mg/dL (2.5-4.9); Potassium, Blood 3.8 mmol/L (3.5-5.5); Sodium, Blood 133 mmol/L (136-145)
[2023-04-10 15:02] VITALS: BP 142/92
--- NOTE | 2023-04-10 18:34 | NUR ---
SHIFT SUMMARY PT A&OX4 AND COOPERATIVE OF CARE. PT C/O NAUSEA T/O DAY. PT MEDICATED WITH ZOFRAN PER EMAR BUT PT STATES SHE FELT LIKE THE ZOFRAN "MADE IT WORSE". PT SOMNOLENT AND SLEPT ON AND OFF T/O DAY. PT DID NOT EAT BREAKFAST OF LUNCH TODAY. PT HASNOT THROWN UP BUT HAS HAD A COUPLE EPISODES OF DRY HEAVING. GRANDAUGHTER AT BEDSIDE MOST OF DAY. PHYSICAL THERAPY WORKED WITH PT TODAY BUT JUST DID MINIMAL WORK D/T PT FEELING TIRED AND WEAK. PT WAS ABLE TO GET UP TO BSC ONCE TODAY BUT ASKED FOR BEDPAN THE REST OF DAY. ORDER FOR PALIATIVE CARE GIVEN BUT THIS NURSE WAS UNABLE TO REACH PALIATIVE CARE TODAY. BED IN LOWEST POSITION AND CALL LIGHT IN REACH.
[2023-04-10 19:22] VITALS: BP 127/73
[2023-04-11 03:08] VITALS: BP 129/78
[2023-04-11 05:10] LABS: BASOPHILS ABSOLUTE AUTO 0.01 K/mm3 (0.00-0.23); BASOPHILS PERCENT AUTO 0 % (0-2); EOSINOPHILS ABSOLUTE AUTO 0.04 K/mm3 (0.00-0.68); EOSINOPHILS PERCENT AUTO 0 % (0-6); Hematocrit 31.8 % (33.0-51.0); Hemoglobin 10.8 g/dL (11.5-16.0); IMMATURE GRAN ABSOLUTE AUTO 0.04 K/mm3 (0.00-0.10); IMMATURE GRAN PERCENT AUTO 0 % (0-1); LYMPHOCYTES ABSOLUTE AUTO 0.61 K/mm3 (0.84-5.20); LYMPHOCYTES PERCENT AUTO 6 % (21-46); MONOCYTES ABSOLUTE AUTO 1.25 K/mm3 (0.16-1.47); MONOCYTES PERCENT AUTO 12 % (4-13); Mean Corpuscular HGB 29.6 pg (26.0-34.0); Mean Corpuscular Volume 87 fL (80-100); Mean Platelet Volume 8.4 fL (9.1-12.4); NEUTROPHILS ABSOLUTE AUTO 8.68 K/mm3 (1.96-9.15); NEUTROPHILS PERCENT AUTO 82 % (41-73); Platelet Count 370 K/mm3 (150-400); RDW Coefficient Variation 12.2 % (11.7-14.2); RDW Standard Deviation 39.3 fL (35.1-46.3); Red Blood Cell Count 3.65 M/mm3 (3.80-5.20); White Blood Cell Count 10.63 K/mm3 (4.00-11.30)
--- NOTE | 2023-04-11 05:12 | NUR ---
MISSAEL IS PLEASANT AND COOPERATIVE WITH CARE ALERT AND FULLY ORIENTED, SHE IS CONTINENT AND USES A BEDPAN, SHE HAS ASYMPTOMATIC AFLUTTER, AND MAINTAINS 02 SATURATIONS IN THE 90S ON 2L O2 VIA NC, HER MEDIPORT IS SALINE LOCKED PER DAYSHIFT REPORT. NO EVENTS TONIGHT, THE PATIENT SLEPT THROUGHOUT MOST OF THE SHIFT, SHE IS CURRENTLY UPRIGHT IN BED HAVING A SNACK, CALL LIGHT IN REACH, BED IN LOWEST POSITION.
--- NOTE | 2023-04-11 05:22 | NUR ---
THIS CLEARING DISTRIBUTION CLERK HAS REVIEWED AND AGREES WITH ALL NOTES AND ASSESSMENTS BY JUDITH ALANIZ.
--- NOTE | 2023-04-11 05:34 | NUR ---
THIS POULTRY KILLER HAS REVIEWED AND AGREES WITH ALL NOTES AND ASSESSMENTS BY JUDITH ALANIZ.
[2023-04-11 05:57] LABS: Albumin, Blood 2.1 g/dL (3.4-5.0); Albumin/Globulin Ratio 0.7 (0.8-1.8); Bilirubin, Total 0.3 mg/dL (0.1-1.0); Bun/Creatinine Ratio 22.5 (12.0-20.0); Calcium, Blood 8.4 mg/dL (8.5-10.1); Creatinine, Blood 0.76 mg/dL (0.40-1.00); Potassium, Blood 3.4 mmol/L (3.5-5.5); Total Protein, Blood 5.1 g/dL (6.4-8.2)
[2023-04-11 08:16] VITALS: BP 134/94
[2023-04-11] MEDS ORDERED: FURO20 PO (13:54)
[2023-04-11] MEDS ORDERED: ONDA4ODT SL (14:02)
[2023-04-11] MEDS ORDERED: PANT20 PO (14:03)
[2023-04-11] MEDS ORDERED: KLOR-CON 1010 ME2 PO (14:05)
[2023-04-11] MEDS ORDERED: METO100ER PO (14:25)
[2023-04-11 15:17] VITALS: BP 155/76
--- NOTE | 2023-04-11 17:18 | NUR ---
PT DISCHARGED HOME WITH HOME HEALTH. DC INSTRUCTIONS AND EDUCATION MATERIAL EXPLAINED TO PT AND FAMILY. ALL QUESTIONS ANSWERED. PERSCRIPTIONS FAXED TO [facility] PER PT. [employer] HEPRIN LOCKED AND DEACCESSED. PT TOLERATED WELL. [facility] DELIVERED PORTABLE OXYGEN WITH INSTRUCTIONS FOR USE. PT HELPED TO DRESS. ALL BELONGINS SENT HOME WITH PT. PT TAKEN BY WHEELCHAIR TO WAITING VEHICLE.
== END 2023-04-11 17:50 | disposition home health service (06) | DRG 357 ==
LOC: ER 17:24 → MEDS 21:17 → PCU 21:17 → MEDS 23:15 → PCU 04-05 16:50 → MEDS 04-07 12:56 → EDPENDDIS 04-09 12:05 → ENPENDDIS 04-09 12:05 → MEDS 04-10 11:33
PROVIDERS: Family Medicine; Internal Medicine; Nurse Practitioner Acute Care; Student in an Organized Health Care Education/Training Program; Surgery; ADMIT Internal Medicine
PROC: 0DJ08ZZ Inspection of Upper Intestinal Tract, Via Natural or Artificial Opening Endoscopic (ICD-10-PCS; 2023-04-06)
PROC: 0DJD8ZZ Inspection of Lower Intestinal Tract, Via Natural or Artificial Opening Endoscopic (ICD-10-PCS; 2023-04-06)
PROC: 0W9G3ZX Drainage of Peritoneal Cavity, Percutaneous Approach, Diagnostic (ICD-10-PCS; 2023-04-08)
PROC: 0W9G4ZZ Drainage of Peritoneal Cavity, Percutaneous Endoscopic Approach (ICD-10-PCS; 2023-04-08)
PROC: 0DBU4ZX Excision of Omentum, Percutaneous Endoscopic Approach, Diagnostic (ICD-10-PCS; 2023-04-08)
PROC: 0W9G3ZZ Drainage of Peritoneal Cavity, Percutaneous Approach (ICD-10-PCS; 2023-04-08)
PROC: 0JH60WZ Insertion of Totally Implantable Vascular Access Device into Chest Subcutaneous Tissue and Fascia, Open Approach (ICD-10-PCS; principal; 2023-04-08 07:30)
PROC: 02HV33Z Insertion of Infusion Device into Superior Vena Cava, Percutaneous Approach (ICD-10-PCS; 2023-04-08 07:30)
DX: C78.6 Secondary malignant neoplasm of retroperitoneum and peritoneum (principal); C25.9 Malignant neoplasm of pancreas, unspecified; E87.1 Hypo-osmolality and hyponatremia; K86.2 Cyst of pancreas; I47.20 Ventricular tachycardia, unspecified; R18.0 Malignant ascites; E78.5 Hyperlipidemia, unspecified; E03.9 Hypothyroidism, unspecified; Z51.5 Encounter for palliative care; K21.9 Gastro-esophageal reflux disease without esophagitis; E11.9 Type 2 diabetes mellitus without complications; I48.0 Paroxysmal atrial fibrillation; D50.9 Iron deficiency anemia, unspecified; I50.9 Heart failure, unspecified; I11.0 Hypertensive heart disease with heart failure; E83.42 Hypomagnesemia; E83.51 Hypocalcemia; K82.8 Other specified diseases of gallbladder; K64.4 Residual hemorrhoidal skin tags; I35.0 Nonrheumatic aortic (valve) stenosis; R63.4 Abnormal weight loss; Z88.0 Allergy status to penicillin; Z79.890 Hormone replacement therapy; Z79.01 Long term (current) use of anticoagulants; Z85.828 Personal history of other malignant neoplasm of skin; Z79.899 Other long term (current) drug therapy; Z98.890 Other specified postprocedural states; Z68.30 Body mass index [BMI] 30.0-30.9, adult
CPT/HCPCS: 36415; 49083; 71045; 71250; 74022; 74177; 76705; 77001; 80048; 80053; 80069; 82042; 82272; 82330; 82378; 82947; 83540; 83550; 83615; 83690; 83735; 83880; 83930; 83935; 84157; 84300; 85014; 85018; 85025; 85610; 86301; 86304; 87070; 87205; 88108; 88305; 88341; 88342; 89051; 93005; 93010; 94761; 97110; 97112; 97116; 97162; 97165; 97530; 99285-25; A9270; C1751; C1788; C9113; J0690; J1100; J1642; J1650; J1940; J2371; J2405; J2704; J3010; J3475; J3480; J7030; J7040; J7050; J7120; Q9967

== ENCOUNTER 2023-04-19 14:14 | Emergency (ER) | payer MEDICARE ==
[~2023-04-19] VITALS: Ht 162.6 cm; Wt 59.0 kg
[~2023-04-19 14:14] MED LIST changes: +CALCIUM CITRAT250 MG PO; +CATAPRES-TTS 11 EAC1 TOP; +CATAPRES0.1 MG PO; +DILTIAZEM 24HR240 M3 PO; +FURO20 PO; +IRBE150 PO; +KLOR-CON 1010 ME2 PO; +LEVSOD100 PO; +Lovastatin20 MG PO; +MAGNESIUM OXID500 MG PO; +METF500 PO; +METO50ER PO; +MIRALAX17 GM PO; +ONDA4ODT SL; +PANTOPRAZOLE SO2010 PO; +SODCHL1 PO; +Vitamin D1000 UNI1 PO
[2023-04-19] MEDS ORDERED: MORP20L PO (16:36)
[2023-04-19] MEDS ORDERED: Zofran4 MG PO (16:36)
[2023-04-19 17:18] LABS: Hematocrit 33.5 % (33.0-51.0); Hemoglobin 11.1 g/dL (11.5-16.0); Mean Corpuscular HGB 29.4 pg (26.0-34.0); Mean Corpuscular HGB Conc 33.1 g/dL (31.5-36.5); Mean Corpuscular Volume 89 fL (80-100); Mean Platelet Volume 9.7 fL (9.1-12.4); Platelet Count 238 K/mm3 (150-400); RDW Coefficient Variation 12.7 % (11.7-14.2); RDW Standard Deviation 41.1 fL (35.1-46.3); Red Blood Cell Count 3.77 M/mm3 (3.80-5.20)
[2023-04-19 17:45] LABS: BAND PERCENT MAN 34 % (0-8); BASOPHILS PERCENT MAN 0 % (0-2); EOSINOPHILS PERCENT MAN 0 % (0-6); LYMPHOCYTES ABSOLUTE MAN 0.09 K/mm3 (0.84-5.20); LYMPHOCYTES PERCENT MAN 10 % (21-46); MONOCYTES PERCENT MAN 0 % (4-13); NEUTROPHILS ABSOLUTE MAN 0.81 K/mm3 (1.96-9.15); SEG NEUTROPHILS PERCENT MAN 56 % (41-73); TOTAL CELLS COUNTED 50
[2023-04-19 17:47] LABS: Albumin/Globulin Ratio 0.8 (0.8-1.8); Bilirubin, Total 0.5 mg/dL (0.1-1.0); Bun/Creatinine Ratio 46.8 (12.0-20.0); Calcium, Blood 7.7 mg/dL (8.5-10.1); Creatinine, Blood 0.79 mg/dL (0.40-1.00); Globulin, Blood 2.6 g/dL (2.2-4.0); Potassium, Blood 3.1 mmol/L (3.5-5.5); Total Protein, Blood 4.6 g/dL (6.4-8.2)
[2023-04-19 18:32] VITALS: BP 136/106
== END 2023-04-19 21:20 | disposition home or self-care (01) ==
LOC: ER 14:14
PROVIDERS: Student in an Organized Health Care Education/Training Program
DX: C25.9 Malignant neoplasm of pancreas, unspecified (principal); Z88.0 Allergy status to penicillin; Z79.899 Other long term (current) drug therapy; Z79.84 Long term (current) use of oral hypoglycemic drugs; I10 Essential (primary) hypertension; E03.9 Hypothyroidism, unspecified; E78.5 Hyperlipidemia, unspecified; K21.9 Gastro-esophageal reflux disease without esophagitis; E11.9 Type 2 diabetes mellitus without complications; I48.91 Unspecified atrial fibrillation; Z51.5 Encounter for palliative care
CPT/HCPCS: 80053; 83690; 85025; 96374; 96375; 99284-25; A9270; C9113; J0780; J1170; J1642; J2405; J7030